=== PATIENT | male | born 1965 | race Caucasian/White ===

== ENCOUNTER 2020-07-06 14:10 | Emergency (ER) | payer OTHER ==
[~2020-07-06 14:10] MED LIST: ACETAMINOPHEN500 MG PO; ASPIRIN EC81 MG PO; CETIRIZINE HCL10 MG PO; CLOPIDOGREL75 MG PO; GLUCOPHAGE 500500 MG PO; HYGROTON TAB 2525 MG PO; LOSARTAN POTAS100 MG PO; NORVASC 5 MG TAB5 MG PO; OMEPRAZOLE40 MG PO; PRAVASTATIN SOD40 MG PO; PROVENTIL HFA6.7 GM INH; RANOLAZINE ER1000 MG PO; SERTRALINE HCL50 MG PO; VIBRAMYCIN100 MG PO
[2020-07-06 16:26] LABS: HEMOGLOBIN 14.5 gm/dl (14.0-17.5); RED BLOOD COUNT 4.85 M/UL (4.20-5.50); WHITE BLOOD COUNT 11.9 K/UL (4.5-11.0)
[2020-07-06 16:38] LABS: BUN/CREATININE RATIO 12 (0-10)
[2020-07-06] MEDS ORDERED: CEFUROXIME500 MG PO (18:34)
== END 2020-07-06 17:08 | disposition home or self-care (01) ==
LOC: ER1 14:10
PROVIDERS: Preventive Medicine Occupational Medicine
DX: N30.90 Cystitis, unspecified without hematuria (principal); I25.10 Atherosclerotic heart disease of native coronary artery without angina pectoris; E11.9 Type 2 diabetes mellitus without complications; I11.9 Hypertensive heart disease without heart failure; F17.210 Nicotine dependence, cigarettes, uncomplicated; Z88.0 Allergy status to penicillin; Z88.2 Allergy status to sulfonamides; Z88.5 Allergy status to narcotic agent
CPT/HCPCS: 76870; 80053; 80307; 81001; 83690; 85025; 85652; 86140; 96374; 96375; 99284; J0696; J2405

== ENCOUNTER 2020-07-20 13:13 | Emergency (ER) | payer OTHER ==
[~2020-07-20 13:13] MED LIST changes: +CEFUROXIME500 MG PO
[2020-07-20 14:55] LABS: HEMOGLOBIN 14.5 gm/dl (14.0-17.5); RED BLOOD COUNT 4.78 M/UL (4.20-5.50); WHITE BLOOD COUNT 12.5 K/UL (4.5-11.0)
[2020-07-20 15:18] LABS: BUN/CREATININE RATIO 12 (0-10)
[2020-07-20] MEDS ORDERED: PYRIDIUM100 MG PO (15:50)
== END 2020-07-20 15:59 | disposition home or self-care (01) ==
LOC: ER1 13:13
PROVIDERS: Preventive Medicine Occupational Medicine
DX: R30.0 Dysuria (principal); I25.10 Atherosclerotic heart disease of native coronary artery without angina pectoris; E11.9 Type 2 diabetes mellitus without complications; F17.210 Nicotine dependence, cigarettes, uncomplicated
CPT/HCPCS: 80053; 81001; 83690; 85025; 87086; 96374; 99284; J0696

== ENCOUNTER 2020-08-18 09:10 | Emergency (ER) | payer OTHER ==
[~2020-08-18 09:10] MED LIST changes: +PYRIDIUM100 MG PO
[2020-08-18 09:42] LABS: HEMOGLOBIN 14.6 gm/dl (14.0-17.5); RED BLOOD COUNT 4.82 M/UL (4.20-5.50); WHITE BLOOD COUNT 10.1 K/UL (4.5-11.0)
[2020-08-18 10:06] LABS: BUN/CREATININE RATIO 12 (0-10)
== END 2020-08-18 12:56 | disposition home or self-care (01) ==
LOC: ER1 09:10
PROVIDERS: Physician Assistant
DX: N50.811 Right testicular pain (principal); N50.812 Left testicular pain; R10.32 Left lower quadrant pain; R30.0 Dysuria; N28.1 Cyst of kidney, acquired; E11.9 Type 2 diabetes mellitus without complications; E78.5 Hyperlipidemia, unspecified; F17.200 Nicotine dependence, unspecified, uncomplicated
CPT/HCPCS: 76870; 80053; 81001; 85025; 96374; 96375; 99284; J1885; J2405; J7030

== ENCOUNTER 2020-09-15 10:41 | Emergency (ER) | payer OTHER ==
[2020-09-15 11:56] LABS: HEMOGLOBIN 14.7 gm/dl (14.0-17.5); RED BLOOD COUNT 4.83 M/UL (4.20-5.50); WHITE BLOOD COUNT 9.9 K/UL (4.5-11.0)
[2020-09-15 12:29] LABS: BUN/CREATININE RATIO 12 (0-10)
== END 2020-09-15 14:50 | disposition home or self-care (01) ==
LOC: ER1 10:41
PROVIDERS: Family Medicine
DX: R07.9 Chest pain, unspecified (principal); R11.0 Nausea; I10 Essential (primary) hypertension; E11.9 Type 2 diabetes mellitus without complications; E78.5 Hyperlipidemia, unspecified; F17.200 Nicotine dependence, unspecified, uncomplicated; Z79.82 Long term (current) use of aspirin; Z79.899 Other long term (current) drug therapy
CPT/HCPCS: 71045; 80053; 82550; 82553; 83874; 84484; 85025; 85610; 93005; 99285

== ENCOUNTER 2020-10-06 11:58 | Emergency (ER) | payer OTHER ==
[2020-10-06] MEDS ORDERED: ZYRTEC10 MG PO (15:18)
== END 2020-10-06 16:00 | disposition home or self-care (01) ==
LOC: ER1 11:58
DX: J32.9 Chronic sinusitis, unspecified (principal); F17.210 Nicotine dependence, cigarettes, uncomplicated; Z88.0 Allergy status to penicillin; Z88.2 Allergy status to sulfonamides; Z88.5 Allergy status to narcotic agent
CPT/HCPCS: 99282

== ENCOUNTER 2020-11-10 14:29 | Emergency (ER) | payer OTHER ==
[~2020-11-10 14:29] MED LIST changes: +ZYRTEC10 MG PO
[2020-11-10 15:07] LABS: HEMOGLOBIN 14.9 gm/dl (14.0-17.5); RED BLOOD COUNT 4.9 M/UL (4.20-5.50); WHITE BLOOD COUNT 11.2 K/UL (4.5-11.0)
[2020-11-10 15:27] LABS: BUN/CREATININE RATIO 12 (0-10)
[2020-11-10] MEDS ORDERED: KEFLEX CAP 250250 MG PO (18:32)
== END 2020-11-10 18:40 | disposition home or self-care (01) ==
LOC: ER1 14:29
PROVIDERS: Physician Assistant Medical
DX: R30.0 Dysuria (principal); R10.30 Lower abdominal pain, unspecified; I25.10 Atherosclerotic heart disease of native coronary artery without angina pectoris; E11.9 Type 2 diabetes mellitus without complications; F17.210 Nicotine dependence, cigarettes, uncomplicated; Z88.5 Allergy status to narcotic agent; Z88.0 Allergy status to penicillin; Z88.2 Allergy status to sulfonamides
CPT/HCPCS: 80053; 81001; 82009; 82550; 82553; 83690; 83874; 84484; 85025; 96374; 96375; 99284; J1885; J2405; Q9967

== ENCOUNTER 2020-11-17 14:01 | Emergency (ER) | payer OTHER ==
[~2020-11-17 14:01] MED LIST changes: +KEFLEX CAP 250250 MG PO
[2020-11-17 15:08] LABS: HEMOGLOBIN 14.9 gm/dl (14.0-17.5); RED BLOOD COUNT 4.84 M/UL (4.20-5.50); WHITE BLOOD COUNT 13.2 K/UL (4.5-11.0)
[2020-11-17 15:34] LABS: BUN/CREATININE RATIO 10 (0-10)
[2020-11-17] MEDS ORDERED: FLAGYL500 MG PO (16:43)
[2020-11-17] MEDS ORDERED: CLINDAMYCIN HC300 MG PO (16:43)
== END 2020-11-17 17:25 | disposition home or self-care (01) ==
LOC: ER1 14:01
PROVIDERS: Physician Assistant
DX: L03.314 Cellulitis of groin (principal); E11.9 Type 2 diabetes mellitus without complications; E78.5 Hyperlipidemia, unspecified; Z88.5 Allergy status to narcotic agent; Z88.0 Allergy status to penicillin; Z88.2 Allergy status to sulfonamides
CPT/HCPCS: 80053; 81001; 85025; 96374; 99283

== ENCOUNTER 2020-12-11 21:07 | Emergency (ER) | payer OTHER ==
[~2020-12-11 21:07] MED LIST changes: +CLINDAMYCIN HC300 MG PO; +FLAGYL500 MG PO
[2020-12-11 22:33] LABS: BUN/CREATININE RATIO 11 (0-10)
[2020-12-11 22:57] LABS: HEMOGLOBIN 13.2 gm/dl (14.0-17.5); RED BLOOD COUNT 4.51 M/UL (4.20-5.50); WHITE BLOOD COUNT 10.7 K/UL (4.5-11.0)
[2020-12-12] MEDS ORDERED: MOBIC15 MG PO (02:55)
== END 2020-12-12 03:15 | disposition home or self-care (01) ==
LOC: ER1 21:07
PROVIDERS: Physician Assistant
DX: R07.89 Other chest pain (principal); E11.9 Type 2 diabetes mellitus without complications; E78.5 Hyperlipidemia, unspecified; I10 Essential (primary) hypertension; R20.2 Paresthesia of skin
CPT/HCPCS: 70450; 71045; 80053; 82550; 82553; 83874; 84484; 85025; 93005; 99285

== ENCOUNTER 2021-02-11 19:00 | Emergency (ER) | payer OTHER ==
[~2021-02-11 19:00] MED LIST changes: +MOBIC15 MG PO
[2021-02-11 19:50] LABS: HEMOGLOBIN 14.7 gm/dl (14.0-17.5); RED BLOOD COUNT 4.79 M/UL (4.20-5.50); WHITE BLOOD COUNT 12.1 K/UL (4.5-11.0)
[2021-02-11 20:08] LABS: BUN/CREATININE RATIO 13 (0-10)
== END 2021-02-12 01:30 | disposition home or self-care (01) ==
LOC: ER1 19:00
PROVIDERS: Family Medicine
DX: R10.11 Right upper quadrant pain (principal); E11.9 Type 2 diabetes mellitus without complications; E78.5 Hyperlipidemia, unspecified; J44.9 Chronic obstructive pulmonary disease, unspecified
CPT/HCPCS: 71045; 80053; 81001; 82550; 82553; 83690; 83874; 84484; 85025; 93005; 96374; 96375; 99284; J2270; J2405; Q9967

== ENCOUNTER 2021-02-25 18:59 | Emergency (ER) | payer OTHER ==
[2021-02-25 20:56] LABS: HEMOGLOBIN 14.8 gm/dl (14.0-17.5); RED BLOOD COUNT 4.88 M/UL (4.20-5.50); WHITE BLOOD COUNT 14.1 K/UL (4.5-11.0)
[2021-02-25 21:17] LABS: BUN/CREATININE RATIO 17 (0-10)
== END 2021-02-26 01:43 | disposition home or self-care (01) ==
LOC: ER1 18:59
PROVIDERS: Physician Assistant
DX: M25.475 Effusion, left foot (principal)
CPT/HCPCS: 73630; 80053; 84550; 85025; 85652; 86140; 96372; 99283; J1885

== ENCOUNTER 2021-04-13 18:12 | Observation (INO) | payer OTHER ==
[~2021-04-13] VITALS: Ht 180.3 cm; Wt 84.8 kg
[2021-04-13 18:41] LABS: HEMOGLOBIN 13.9 gm/dl (14.0-17.5); RED BLOOD COUNT 4.66 M/UL (4.20-5.50)
[2021-04-13 19:20] LABS: BUN/CREATININE RATIO 16 (0-10)
[2021-04-14] MEDS ORDERED: COLCHICINE 0.60.6 MG PO (00:48)
[2021-04-14] MEDS ORDERED: FLONASE 0.05% N16 GM (00:50)
[2021-04-14] MEDS ORDERED: CHLORTHALIDONE25 MG PO (00:50)
[2021-04-14] MEDS ORDERED: PROAIR HFA8.5 GM INH (00:51)
[2021-04-14] MEDS ORDERED: LOPRESSOR 25 MG25 MG PO (15:59)
== END 2021-04-14 17:15 | disposition home or self-care (01) ==
LOC: ER1 18:12 → CDU 20:21 → MED SURG 4 20:21
PROVIDERS: ADMIT Family Medicine
DX: R07.89 Other chest pain (principal); U07.1 COVID-19; I10 Essential (primary) hypertension; E78.5 Hyperlipidemia, unspecified; E11.9 Type 2 diabetes mellitus without complications; K21.9 Gastro-esophageal reflux disease without esophagitis; I25.10 Atherosclerotic heart disease of native coronary artery without angina pectoris; R20.0 Anesthesia of skin; F17.210 Nicotine dependence, cigarettes, uncomplicated; Z79.02 Long term (current) use of antithrombotics/antiplatelets; Z79.82 Long term (current) use of aspirin; Z88.6 Allergy status to analgesic agent; Z88.5 Allergy status to narcotic agent; Z88.0 Allergy status to penicillin; Z88.2 Allergy status to sulfonamides; Z88.8 Allergy status to other drugs, medicaments and biological substances; Z82.49 Family history of ischemic heart disease and other diseases of the circulatory system; Z98.61 Coronary angioplasty status
CPT/HCPCS: ECHO; 36415; 70450; 71045; 80053; 80061; 82550; 82553; 82962; 83036; 83874; 84484; 85025; 93005; 93306; G0378; J1644; U0002

== ENCOUNTER 2021-05-12 16:43 | Emergency (ER) | payer OTHER ==
[~2021-05-12 16:43] MED LIST changes: +CHLORTHALIDONE25 MG PO; +COLCHICINE 0.60.6 MG PO; +FLONASE 0.05% N16 GM; +LOPRESSOR 25 MG25 MG PO; +PROAIR HFA8.5 GM INH
[2021-05-12 17:40] LABS: RED BLOOD COUNT 4.64 M/UL (4.20-5.50); WHITE BLOOD COUNT 9.4 K/UL (4.5-11.0)
[2021-05-12 18:01] LABS: BUN/CREATININE RATIO 19 (0-10)
== END 2021-05-12 22:12 | disposition home or self-care (01) ==
LOC: ER1 16:43
PROVIDERS: Student in an Organized Health Care Education/Training Program
DX: R07.89 Other chest pain (principal); I25.10 Atherosclerotic heart disease of native coronary artery without angina pectoris; E11.9 Type 2 diabetes mellitus without complications; E78.5 Hyperlipidemia, unspecified; I10 Essential (primary) hypertension; F17.210 Nicotine dependence, cigarettes, uncomplicated; Z88.0 Allergy status to penicillin; Z88.2 Allergy status to sulfonamides
CPT/HCPCS: 71045; 80048; 82550; 82553; 83874; 84484; 85025; 85379; 93005; 99285

== ENCOUNTER 2021-07-26 14:03 | Emergency (ER) | payer OTHER ==
[2021-07-26 14:48] LABS: HEMOGLOBIN 14.3 gm/dl (14.0-17.5); RED BLOOD COUNT 4.7 M/UL (4.20-5.50); WHITE BLOOD COUNT 13.6 K/UL (4.5-11.0)
[2021-07-26 15:07] LABS: BUN/CREATININE RATIO 24 (0-10)
== END 2021-07-26 22:17 | disposition home or self-care (01) ==
LOC: ER1 14:03
PROVIDERS: Physician Assistant
DX: R55 Syncope and collapse (principal); S70.02XA Contusion of left hip, initial encounter; F17.210 Nicotine dependence, cigarettes, uncomplicated; I10 Essential (primary) hypertension; E11.9 Type 2 diabetes mellitus without complications; I25.2 Old myocardial infarction; Z95.5 Presence of coronary angioplasty implant and graft; Z88.0 Allergy status to penicillin; Z88.2 Allergy status to sulfonamides; Z88.5 Allergy status to narcotic agent; Z86.73 Personal history of transient ischemic attack (TIA), and cerebral infarction without residual deficits; Z79.84 Long term (current) use of oral hypoglycemic drugs; W19.XXXA Unspecified fall, initial encounter
CPT/HCPCS: 70450; 71045; 73502; 80053; 82550; 82553; 84484; 85025; 93005; 99284

== ENCOUNTER 2021-08-26 12:43 | Emergency (ER) | payer OTHER ==
[2021-08-26 13:10] LABS: HEMOGLOBIN 15.4 gm/dl (14.0-17.5); RED BLOOD COUNT 4.99 M/UL (4.20-5.50); WHITE BLOOD COUNT 12.3 K/UL (4.5-11.0)
== END 2021-08-26 17:07 | disposition left against medical advice (07) ==
LOC: ER1 12:43
DX: R07.89 Other chest pain (principal); R51.9 Headache, unspecified; R30.0 Dysuria; R20.0 Anesthesia of skin; E11.9 Type 2 diabetes mellitus without complications; I10 Essential (primary) hypertension; F17.200 Nicotine dependence, unspecified, uncomplicated; I25.2 Old myocardial infarction; Z86.73 Personal history of transient ischemic attack (TIA), and cerebral infarction without residual deficits; Z88.0 Allergy status to penicillin; Z88.2 Allergy status to sulfonamides
CPT/HCPCS: 70450; 71045; 80053; 81001; 82550; 82553; 84484; 85025; 85379; 87086; 93005; 99283

== ENCOUNTER 2021-09-09 13:03 | Emergency (ER) | payer OTHER | END 2021-09-09 16:50 | disposition home or self-care (01) | LOC: ER1 13:03 | DX: M25.552 Pain in left hip (principal); M54.50 Low back pain, unspecified; I11.9 Hypertensive heart disease without heart failure; E11.9 Type 2 diabetes mellitus without complications; F17.210 Nicotine dependence, cigarettes, uncomplicated; Z88.5 Allergy status to narcotic agent; Z88.0 Allergy status to penicillin; Z88.2 Allergy status to sulfonamides | CPT/HCPCS: 72131; 73502; 99284 ==

== ENCOUNTER 2021-09-14 17:18 | Emergency (ER) | payer OTHER | END 2021-09-14 20:58 | disposition home or self-care (01) | LOC: ER1 17:18 | DX: M25.552 Pain in left hip (principal); I10 Essential (primary) hypertension; E11.9 Type 2 diabetes mellitus without complications; F17.200 Nicotine dependence, unspecified, uncomplicated; Z79.84 Long term (current) use of oral hypoglycemic drugs; W01.10XA Fall on same level from slipping, tripping and stumbling with subsequent striking against unspecified object, initial encounter | CPT/HCPCS: 72192; 81001; 99284 ==

== ENCOUNTER 2021-10-13 20:31 | Emergency (ER) | payer OTHER ==
[2021-10-13 21:30] LABS: HEMOGLOBIN 14.2 gm/dl (14.0-17.5); RED BLOOD COUNT 4.66 M/UL (4.20-5.50)
[2021-10-13 21:58] LABS: BUN/CREATININE RATIO 9 (0-10)
[2021-10-14] MEDS ORDERED: PAXLOVID 150-11 EACH PO (01:10)
== END 2021-10-14 01:12 | disposition home or self-care (01) ==
LOC: ER1 20:31
PROVIDERS: Physician Assistant
DX: U07.1 COVID-19 (principal); E78.5 Hyperlipidemia, unspecified; J44.9 Chronic obstructive pulmonary disease, unspecified; E11.9 Type 2 diabetes mellitus without complications; I10 Essential (primary) hypertension; F17.210 Nicotine dependence, cigarettes, uncomplicated; Z88.2 Allergy status to sulfonamides; Z88.0 Allergy status to penicillin; Z88.5 Allergy status to narcotic agent; Z91.040 Latex allergy status
CPT/HCPCS: 0240U; 70450; 71045; 80053; 82550; 82553; 84484; 85025; 93005; 99284